=== PATIENT | male | born 1980 | race Caucasian/White ===

== ENCOUNTER 2018-08-14 20:19 | Emergency (ER) | payer MEDICAID, SELFPAY ==
[2018-08-14] MEDS ORDERED: NS 1,000 ML IV ONE (21:00)
[2018-08-14 21:31] LABS: BASO # 0.1 10^3/uL (0.0-0.2); BASO % 0.8 % (0.0-1.0); EOS # 0.2 10^3/uL (0.0-0.50); EOS % 1.9 % (0.0-3.0); HEMATOCRIT 49.1 % (42.0-52.0); HEMOGLOBIN 17.6 g/dl (13.5-17.5); LYMPH # 3.1 10^3/uL (1.5-4.5); LYMPH % 25.4 % (24.0-44.0); MEAN CORPUSCULAR HEMOGLOBIN 30.9 pg (27.0-33.0); MEAN CORPUSCULAR HGB CONC 35.8 g/dl (32.0-36.5); MEAN CORPUSCULAR VOLUME 86.3 fl (80.0-96.0); MONO % 8.3 % (0.0-5.0); NEUTROPHILS # 7.9 10^3/uL (1.8-7.7); NEUTROPHILS % 63.4 % (36.0-66.0); PLATELET COUNT, AUTOMATED 239 10^3/uL (150-450); RED BLOOD COUNT 5.69 10^6/uL (4.30-6.10); WHITE BLOOD COUNT 12.4 10^3/uL (4.0-10.0)
[2018-08-14 21:42] LABS: INR 0.94; PROTHROMBIN TIME 12.7 SECONDS (12.1-14.4)
[2018-08-14 21:43] LABS: PARTIAL THROMBOPLASTIN TIME 27.7 SECONDS (25.4-37.6)
[2018-08-14 21:45] LABS: D-DIMER QUANT 303.1 ng/ml (<500)
[2018-08-14 21:48] LABS: ALT/SGPT 43 U/L (12-78); BILIRUBIN,DIRECT 0.1 MG/DL (0.0-0.2); BILIRUBIN,TOTAL 0.3 MG/DL (0.2-1.0); C REACTIVE PROTEIN QUANTITATIV < 0.30 MG/DL (0.00-0.30); CPK CREATINE PHOSPHOKINASE 213 U/L (39-308); LIPASE 157 U/L (73-393); MB/CK RELATIVE INDEX 0.75 (< OR =4); NT-PRO BNP 14 PG/ML (<125); TROPONIN I < 0.02 NG/ML (< 0.10)
[2018-08-14 21:51] LABS: ERYTHROCYTE SEDIMENTATION RATE 1 mm/hr (0-15)
[2018-08-14] MEDS ORDERED: KETOROLAC 30 MG/ML VIAL (J1885) IV ONE (22:00)
[2018-08-14 22:20] LABS: BLOOD UREA NITROGEN 11 MG/DL (7-18); CALCIUM LEVEL 8.8 MG/DL (8.5-10.1); CARBON DIOXIDE LEVEL 25 MEQ/L (21-32); CHLORIDE LEVEL 109 MEQ/L (98-107); CREATININE FOR GFR 1.04 MG/DL (0.70-1.30); GLOMERULAR FILTRATION RATE > 60.0 (>60); GLUCOSE, FASTING 103 MG/DL (70-100); SODIUM LEVEL 140 MEQ/L (136-145)
[2018-08-14] MEDS ORDERED: ISOVUE-370 76% 100ML VIAL (Q9967) As Ordered ONE (22:32)
--- NOTE | 2018-08-14 23:20 | REPVR ---
EXAM: CT Angiography Chest With Contrast EXAM DATE/TIME: 08/14/2018 10:39 PM CLINICAL HISTORY: 37 years old, male; Pain; Chest pain; Additional info: Chest pain- radiates to back, pleuritic TECHNIQUE: Axial computed tomographic angiography images of the chest with intravenous contrast using CT angiography protocol. All CT scans at this facility use at least one of these dose optimization techniques: automated exposure control; mA and/or kV adjustment per patient size (includes targeted exams where dose is matched to clinical indication); or iterative reconstruction. Coronal and sagittal reformatted images were created and reviewed. MIP reconstructed images were created and reviewed. CONTRAST: 75 ml of ISOVUE 370 administered intravenously. COMPARISON: CR Chest, 2 view PA, Lat 08/14/2018 8:52 PM FINDINGS: Pulmonary arteries: Normal. No pulmonary emboli. Aorta: Normal. No aortic aneurysm. No aortic dissection. Lungs: Normal. No consolidation. No masses. Pleural space: Normal. No pneumothorax. No pleural effusion. Heart: Normal. No cardiomegaly. No pericardial effusion. Lymph nodes: Unremarkable. No enlarged lymph nodes. Bones/joints: Unremarkable. No acute fracture. Soft tissues: Unremarkable. IMPRESSION: No acute findings. Electronically signed by: Chris Llamas On 08/14/2018 23:19:20 PM
[2018-08-14 23:57] VITALS: BP 140/77
[2018-08-15] MEDS ORDERED: NORCO 5/325MG TABLET (BULK FOR ED) PO ONE
--- NOTE | 2018-08-15 06:37 | ECGEPIP ---
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
--- NOTE | 2018-08-16 11:01 | REP ---
CHEST: Two views. There is no evidence of acute infiltrate. No pleural effusion is seen. The heart is normal in size. The mediastinal silhouette is unremarkable. The visualized osseous structures are intact. IMPRESSION: No acute pulmonary disease. Electronically Signed by Coleman Joshi MD 08/16/2018 10:54 P
== END 2018-08-15 00:02 | disposition home or self-care (01) ==
LOC: M ED 20:19
DX: R07.89 Other chest pain (principal); R00.0 Tachycardia, unspecified; R06.02 Shortness of breath; R11.2 Nausea with vomiting, unspecified; K25.9 Gastric ulcer, unspecified as acute or chronic, without hemorrhage or perforation; F17.200 Nicotine dependence, unspecified, uncomplicated; Z88.0 Allergy status to penicillin; Z88.8 Allergy status to other drugs, medicaments and biological substances; Z88.1 Allergy status to other antibiotic agents
CPT/HCPCS: 71046; 71275; 80048; 80076; 82550; 82553; 83690; 83880; 84443; 85025; 85379; 85610; 85652; 85730; 86140; 93005; 93041; 94760; 96374; 99285; J1885; Q9967

== ENCOUNTER 2018-10-21 11:48 | Emergency (ER) | payer OTHER, SELFPAY ==
[~2018-10-21] VITALS: Ht 177.8 cm; Wt 94.5 kg
[2018-10-21 11:49] VITALS: BP 143/73
--- NOTE | 2018-10-21 12:42 | REP ---
LEFT WRIST, FOUR VIEWS: HISTORY: Fall. There is no acute fracture or dislocation. The joint spaces are normal in appearance. IMPRESSION: There is no acute fracture or dislocation. Electronically Signed by Adelso Nieves MD 10/21/2018 12:43 P
== END 2018-10-21 12:43 | disposition home or self-care (01) ==
LOC: M ED 11:48
DX: S63.92XA Sprain of unspecified part of left wrist and hand, initial encounter (principal); W10.8XXA Fall (on) (from) other stairs and steps, initial encounter; Y92.018 Other place in single-family (private) house as the place of occurrence of the external cause; Z88.0 Allergy status to penicillin; Z88.1 Allergy status to other antibiotic agents; Z88.8 Allergy status to other drugs, medicaments and biological substances; F17.210 Nicotine dependence, cigarettes, uncomplicated